=== PATIENT | female | born 1930 | race Caucasian/White ===

== ENCOUNTER 2016-11-09 13:30 | Observation (INO) | payer OTHER ==
[~2016-11-09] VITALS: Ht 154.9 cm; Wt 71.0 kg
[~2016-11-09 13:30] MED LIST: Aspirin E.C. PO; DAILY VALUE1 EACH PO; LISINOPRIL10 MG PO; SIMVASTATIN10 MG PO; ST. JOSEPH ASPI81 MG PO; Vicodin,Norco 5/325 PO; ZITHROMAX Z-PA250 MG PO; Zocor PO
[2016-11-09 14:55] LABS: ADD MIUA? NO; BILIRUBIN NEGATIVE; BLOOD NEGATIVE; COLOR YELLOW ((YELLOW)); GLUCOSE (STRIP) NEGATIVE; KETONES NEGATIVE; LEUKOCYTES NEGATIVE; NITRITE NEGATIVE; PH, URINE 6.5 (5-8); PROTEIN (STRIP) NEGATIVE; SPECIFIC GRAVITY 1.011 (1.000-1.030); UCUL ADDED? NO; UROBILINOGEN 0.2 MG/DL (0.2-1.0)
[2016-11-09 15:00] LABS: INFLUENZA A VIRAL ANTIGEN NEGATIVE; INFLUENZA B VIRAL ANTIGEN NEGATIVE
[2016-11-09 15:32] LABS: HEMATOCRIT 39.9 % (36.0-46.0); MCH 32.2 PG (29.0-34.0); MCHC 33.3 G/DL (30.0-36.0); MCV 96.6 FL (83-99); MEAN PLAT.VOLUME 9.7 uM^3 (9.5-12.4); PLATELET COUNT 272 K/uL (156-360); RBC DIS.WIDTH-CV 12.2 % (11.8-14.6); RBC DIS.WIDTH-SD 41.6 % (39-53); RED BLOOD COUNT 4.13 M/uL (3.80-5.20); WHITE BLOOD COUNT 9.2 K/uL (4.1-10.2)
[2016-11-09 15:49] LABS: TROP-I INTERPRETATION NEGATIVE; TROPONIN-I < 0.01 ng/mL (0.0-0.30)
[2016-11-09 16:33] LABS: CHLORIDE 107 mEq/L (99-109); POTASSIUM 4.4 mEq/L (3.7-5.4); SODIUM 141 mEq/L (136-147)
[2016-11-09 16:35] LABS: GLUCOSE 87 mg/dL (70-99)
[2016-11-09 16:36] LABS: ANION GAP 10 MEQ/L (2-14)
[2016-11-09 16:37] LABS: TOTAL BILIRUBIN 0.2 mg/dL (0.0-1.0)
[2016-11-09 16:38] LABS: ALKALINE PHOSPHATASE 61 IU/L (3-129)
[2016-11-09 16:39] LABS: GFR ESTIMATE (CALCULATED) > 59 mL/min/
[2016-11-09 16:40] LABS: UREA NITROGEN (BUN) 19 mg/dL (9-23)
[2016-11-09] MEDS ORDERED: LEXAPRO10 MG PO (17:47)
[2016-11-09] MEDS ORDERED: FLONASE16 G1 BOTH NARES (17:48)
[2016-11-09] MEDS ORDERED: QUETIAPINE FUMA25 MG PO (17:49)
[2016-11-09] MEDS ORDERED: AMLODIPINE BESY10 MG PO (17:50)
[2016-11-09] MEDS ORDERED: CLARITIN,ALAVAR10 MG PO (17:51)
[2016-11-09] MEDS ORDERED: DONEPEZIL HCL10 MG PO (17:51)
[2016-11-09 18:07] VITALS: BP 149/70
[2016-11-09 19:43] VITALS: BP 104/51
[2016-11-09 23:03] VITALS: BP 115/60
[2016-11-10 03:31] VITALS: BP 112/60
[2016-11-10 08:08] VITALS: BP 137/67
[2016-11-10] MEDS ORDERED: MUCINEX600 MG PO (11:11)
[2016-11-10] MEDS ORDERED: CEFDINIR300 MG PO (11:13)
[2016-11-10 12:04] VITALS: BP 144/65
== END 2016-11-10 13:35 | disposition home or self-care (01) ==
LOC: EME 13:30 → EDOF 16:44 → 5WEST 16:44
PROVIDERS: Emergency Medicine
DX: G93.40 Encephalopathy, unspecified (principal); J18.9 Pneumonia, unspecified organism; R41.0 Disorientation, unspecified; I25.10 Atherosclerotic heart disease of native coronary artery without angina pectoris; I65.29 Occlusion and stenosis of unspecified carotid artery; Z98.890 Other specified postprocedural states; E78.5 Hyperlipidemia, unspecified; Z66 Do not resuscitate
CPT/HCPCS: 70450; 71020; 80053; 81003; 84484; 85027; 87040; 87070; 87205; 87502; 99281; 99285; G0378; G8978 GP CH; G8979 GP CH; G8980 GP CH; G8987 GO CH; G8988 GO CH; G8989 GO CH; J0696; J1650; J7030; J7050

== ENCOUNTER 2016-11-14 17:07 | Inpatient (IN) | payer OTHER ==
[~2016-11-14] VITALS: Ht 154.9 cm; Wt 69.7 kg
[~2016-11-14 17:07] MED LIST changes: +AMLODIPINE BESY10 MG PO; +CEFDINIR300 MG PO; +CLARITIN,ALAVAR10 MG PO; +DONEPEZIL HCL10 MG PO; +FLONASE16 G1 BOTH NARES; +LEXAPRO10 MG PO; +MUCINEX600 MG PO; +QUETIAPINE FUMA25 MG PO
[2016-11-14 18:45] LABS: TROP-I INTERPRETATION NEGATIVE; TROPONIN-I < 0.01 ng/mL (0.0-0.30)
[2016-11-14 18:48] LABS: EOSINOPHIL (%) 2.4 % (0-5); EOSINOPHIL COUNT 0.1 K/uL (0-0.3); IMMATURE GRANULOCYTE (%) 0.3 % (0.0-0.7); IMMATURE GRANULOCYTE COUNT 0.1 K/uL; LYMPHOCYTE COUNT 1.2 K/uL (1.0-2.8); MCH 32.2 PG (29.0-34.0); MCHC 33.7 G/DL (30.0-36.0); MCV 95.5 FL (83-99); MONOCYTE (%) 14.3 % (3-12); MONOCYTE COUNT 0.5 K/uL (0-0.8); NEUTROPHIL (%) 47.8 % (45-76); NEUTROPHIL COUNT 1.6 K/uL (1.8-6.4); RBC DIS.WIDTH-CV 12.4 % (11.8-14.6); RBC DIS.WIDTH-SD 41.8 % (39-53); RED BLOOD COUNT 3.98 M/uL (3.80-5.20)
[2016-11-14 18:59] LABS: WHITE BLOOD COUNT 3.4 K/uL (4.1-10.2)
[2016-11-14 19:41] LABS: PLAT.SUFFICIENCY ADEQUATE; PLATELET COUNT 170 K/uL (156-360)
[2016-11-14 19:49] LABS: POTASSIUM 3.6 mEq/L (3.7-5.4); SODIUM 136 mEq/L (136-147)
[2016-11-14 19:51] LABS: GLUCOSE 78 mg/dL (70-99)
[2016-11-14 19:52] LABS: ANION GAP 13 MEQ/L (2-14)
[2016-11-14 19:55] LABS: GFR ESTIMATE (CALCULATED) > 59 mL/min/
[2016-11-14 19:56] LABS: UREA NITROGEN (BUN) 10 mg/dL (9-23)
[2016-11-14 20:02] LABS: CHLORIDE 100 mEq/L (99-109)
[2016-11-14 21:26] LABS: ADD MIUA? YES; BILIRUBIN NEGATIVE; BLOOD SMALL; COLOR YELLOW ((YELLOW)); GLUCOSE (STRIP) NEGATIVE; KETONES 15; LEUKOCYTES SMALL; NITRITE NEGATIVE; PROTEIN (STRIP) 30; SPECIFIC GRAVITY 1.024 (1.000-1.030); UROBILINOGEN 0.2 MG/DL (0.2-1.0)
[2016-11-14 21:49] LABS: AMORPHOUS URATES CRYSTALS 1+; BACTERIA RARE; CASTS PRESENT /LPF; CRYSTALS PRESENT; EPITHELIAL CELLS NONE SEEN; HYALINE CASTS RARE /LPF; MUCUS RARE; RED BLOOD CELLS 0-5 /HPF (0-5); UCUL ADDED? NO; WHITE BLOOD CELLS 0-5 /HPF (0-5)
[2016-11-15 01:15] VITALS: BP 159/66
[2016-11-15 03:16] LABS: INFLUENZA A VIRAL ANTIGEN POSITIVE; INFLUENZA B VIRAL ANTIGEN NEGATIVE
[2016-11-15 04:24] VITALS: BP 137/62
[2016-11-15 05:56] LABS: ALKALINE PHOSPHATASE 42 IU/L (3-129); ANION GAP 9 MEQ/L (2-14); CHLORIDE 107 MEQ/L (99-109); GFR ESTIMATE (CALCULATED) > 59 mL/min/; GLUCOSE 85 mg/dL (70-99); POTASSIUM 3.9 MEQ/L (3.7-5.4); SAMPLE HEMOLYSIS CHECK 0; SAMPLE ICTERIC CHECK 0; SAMPLE LIPEMIA CHECK 0; SODIUM 139 MEQ/L (136-147); TOTAL BILIRUBIN 0.2 MG/DL (0.0-1.0); UREA NITROGEN (BUN) 8 mg/dL (9-23)
[2016-11-15 06:09] LABS: EOSINOPHIL (%) 5.3 % (0-5); EOSINOPHIL COUNT 0.1 K/uL (0-0.3); HEMATOCRIT 32.8 % (36.0-46.0); IMMATURE GRANULOCYTE (%) 0.5 % (0.0-0.7); MCH 32.2 PG (29.0-34.0); MCHC 32.9 G/DL (30.0-36.0); MCV 97.9 FL (83-99); MEAN PLAT.VOLUME 9.5 uM^3 (9.5-12.4); MONOCYTE COUNT 0.3 K/uL (0-0.8); NEUTROPHIL (%) 32.8 % (45-76); NEUTROPHIL COUNT 0.7 K/uL (1.8-6.4); PLATELET COUNT 129 K/uL (156-360); RBC DIS.WIDTH-CV 12.9 % (11.8-14.6); RBC DIS.WIDTH-SD 45.7 % (39-53); RED BLOOD COUNT 3.35 M/uL (3.80-5.20)
[2016-11-15 06:12] LABS: WHITE BLOOD COUNT 2.1 K/uL (4.1-10.2)
[2016-11-15 08:10] VITALS: BP 146/67
[2016-11-15 09:49] LABS: C DIFF TOXIN NEGATIVE (NEGATIVE)
[2016-11-15 09:50] LABS: PROBE CHECK PASS; SPECIMEN PROCESSING CONTROL PASS
[2016-11-15 15:51] VITALS: BP 140/62
[2016-11-15 21:00] VITALS: BP 155/78
[2016-11-15 23:15] VITALS: BP 114/56
[2016-11-16 06:14] LABS: MCH 30.9 PG (29.0-34.0); MCHC 32.1 G/DL (30.0-36.0); MCV 96.2 FL (83-99); MEAN PLAT.VOLUME 9.2 uM^3 (9.5-12.4); PLATELET COUNT 137 K/uL (156-360); RBC DIS.WIDTH-CV 12.8 % (11.8-14.6); RBC DIS.WIDTH-SD 44.6 % (39-53); RED BLOOD COUNT 3.43 M/uL (3.80-5.20); WHITE BLOOD COUNT 2.5 K/uL (4.1-10.2)
[2016-11-16 06:35] LABS: ANION GAP 7 MEQ/L (2-14); CHLORIDE 106 MEQ/L (99-109); GFR ESTIMATE (CALCULATED) > 59 mL/min/; GLUCOSE 86 mg/dL (70-99); POTASSIUM 3.8 MEQ/L (3.7-5.4); SAMPLE HEMOLYSIS CHECK 0; SAMPLE ICTERIC CHECK 0; SAMPLE LIPEMIA CHECK 0; SODIUM 139 MEQ/L (136-147); UREA NITROGEN (BUN) 8 mg/dL (9-23)
[2016-11-16 08:03] LABS: INTERNAL CONTROL VALID? YES
[2016-11-16 08:30] VITALS: BP 126/61
[2016-11-16 15:50] VITALS: BP 128/65
[2016-11-17 00:09] VITALS: BP 120/72
[2016-11-17 05:55] LABS: HEMATOCRIT 32.1 % (36.0-46.0); MCH 31.1 PG (29.0-34.0); MCHC 32.4 G/DL (30.0-36.0); MCV 96.1 FL (83-99); MEAN PLAT.VOLUME 9.4 uM^3 (9.5-12.4); PLATELET COUNT 134 K/uL (156-360); RBC DIS.WIDTH-CV 12.7 % (11.8-14.6); RBC DIS.WIDTH-SD 44.5 % (39-53); RED BLOOD COUNT 3.34 M/uL (3.80-5.20); WHITE BLOOD COUNT 3.2 K/uL (4.1-10.2)
[2016-11-17 06:29] LABS: ANION GAP 7 MEQ/L (2-14); CHLORIDE 109 MEQ/L (99-109); GFR ESTIMATE (CALCULATED) > 59 mL/min/; GLUCOSE 90 mg/dL (70-99); POTASSIUM 3.8 MEQ/L (3.7-5.4); SAMPLE HEMOLYSIS CHECK 0; SAMPLE ICTERIC CHECK 0; SAMPLE LIPEMIA CHECK 0; SODIUM 141 MEQ/L (136-147); UREA NITROGEN (BUN) 8 mg/dL (9-23)
[2016-11-17 07:45] VITALS: BP 135/69
[2016-11-17 08:35] VITALS: BP 160/72
[2016-11-17 16:32] VITALS: BP 125/75
[2016-11-18] VITALS (7 sets, daily range): BP systolic 128–153; BP diastolic 63–100
[2016-11-18 07:28] LABS: HEMATOCRIT 34.1 % (36.0-46.0); MCH 30.8 PG (29.0-34.0); MCHC 32.3 G/DL (30.0-36.0); MCV 95.5 FL (83-99); MEAN PLAT.VOLUME 9.3 uM^3 (9.5-12.4); PLATELET COUNT 150 K/uL (156-360); RBC DIS.WIDTH-CV 12.3 % (11.8-14.6); RBC DIS.WIDTH-SD 42.9 % (39-53); RED BLOOD COUNT 3.57 M/uL (3.80-5.20); WHITE BLOOD COUNT 3.5 K/uL (4.1-10.2)
[2016-11-18 07:52] LABS: ANION GAP 7 MEQ/L (2-14); CHLORIDE 104 MEQ/L (99-109); GFR ESTIMATE (CALCULATED) > 59 mL/min/; GLUCOSE 92 mg/dL (70-99); POTASSIUM 3.8 MEQ/L (3.7-5.4); SAMPLE HEMOLYSIS CHECK 0; SAMPLE ICTERIC CHECK 0; SAMPLE LIPEMIA CHECK 0; SODIUM 140 MEQ/L (136-147); UREA NITROGEN (BUN) 10 mg/dL (9-23)
[2016-11-19 00:10] VITALS: BP 122/70
[2016-11-19 04:50] VITALS: BP 120/66
[2016-11-19 08:16] VITALS: BP 120/65
[2016-11-19] MEDS ORDERED: OSELTAMIVIR PHO30 MG PO (10:30)
== END 2016-11-19 14:47 | disposition home or self-care (01) | DRG 194 ==
LOC: EME 17:07 → EDOF 23:18 → 4SOUTH 23:18
PROVIDERS: Emergency Medicine; Internal Medicine; Physician Assistant
DX: J18.9 Pneumonia, unspecified organism (principal); D61.818 Other pancytopenia; J11.1 Influenza due to unidentified influenza virus with other respiratory manifestations; E86.0 Dehydration; I95.1 Orthostatic hypotension; E78.5 Hyperlipidemia, unspecified; I25.10 Atherosclerotic heart disease of native coronary artery without angina pectoris; K21.9 Gastro-esophageal reflux disease without esophagitis; E87.6 Hypokalemia; F03.90 Unspecified dementia, unspecified severity, without behavioral disturbance, psychotic disturbance, mood disturbance, and anxiety
CPT/HCPCS: 70450; 71010; 71020; 80048; 80053; 81003; 83605; 83880; 84484; 85025; 85027; 87040; 87070; 87205; 87449; 87493; 87502; 93005; 94760; 94799; 99202; 99281; 99285; J0456; J1644; J1956; J2543; J3480; J7030; J7050

== ENCOUNTER 2017-10-17 20:19 | Emergency (ER) | payer OTHER ==
[~2017-10-17] VITALS: Ht 160 cm; Wt 69.0 kg
[~2017-10-17 20:19] MED LIST changes: +OSELTAMIVIR PHO30 MG PO
[2017-10-17 21:24] VITALS: BP 157/77
== END 2017-10-17 21:25 | disposition home or self-care (01) ==
LOC: EME 20:19
DX: H90.2 Conductive hearing loss, unspecified (principal); H61.23 Impacted cerumen, bilateral; H61.893 Other specified disorders of external ear, bilateral; K21.9 Gastro-esophageal reflux disease without esophagitis; E78.00 Pure hypercholesterolemia, unspecified; F32.9 Major depressive disorder, single episode, unspecified; F03.90 Unspecified dementia, unspecified severity, without behavioral disturbance, psychotic disturbance, mood disturbance, and anxiety
CPT/HCPCS: 99281; 99284

== ENCOUNTER 2018-05-16 20:17 | Emergency (ER) | payer OTHER ==
[~2018-05-16] VITALS: Ht 154.9 cm; Wt 68.2 kg
[2018-05-16 22:53] VITALS: BP 145/81
== END 2018-05-16 22:53 | disposition home or self-care (01) ==
LOC: EME 20:17
PROC: 09C0XZZ Extirpation of Matter from Right External Ear, External Approach (ICD-10-PCS; principal; 2018-05-16)
DX: H61.21 Impacted cerumen, right ear (principal); F03.90 Unspecified dementia, unspecified severity, without behavioral disturbance, psychotic disturbance, mood disturbance, and anxiety; E78.5 Hyperlipidemia, unspecified; K21.9 Gastro-esophageal reflux disease without esophagitis; F32.9 Major depressive disorder, single episode, unspecified
CPT/HCPCS: 99281; 99284